=== PATIENT | female | born 1935 | race Caucasian/White ===

== ENCOUNTER 2017-11-27 12:36 | Emergency (ER) | payer OTHER ==
[~2017-11-27] VITALS: Ht 154.9 cm; Wt 60.3 kg
[2017-11-27] MEDS ORDERED: BLADDER CONTROL PO (13:03)
[2017-11-27 15:22] VITALS: BP 127/72
== END 2017-11-27 15:24 | disposition home or self-care (01) ==
LOC: M.ERS 12:36
DX: K59.00 Constipation, unspecified (principal)

== ENCOUNTER 2018-03-16 18:27 | Emergency (ER) | payer OTHER ==
[~2018-03-16] VITALS: Ht 154.9 cm; Wt 59.0 kg
[~2018-03-16 18:27] MED LIST: BLADDER CONTROL PO
[2018-03-16] MEDS ORDERED: CYMBALTA20 MG PO (18:36)
[2018-03-16] MEDS ORDERED: TRAMADOL 50 MG50 MG PO (19:35)
[2018-03-16 19:44] VITALS: BP 157/88
--- NOTE | 2018-03-17 12:48 | EKG ---
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
== END 2018-03-16 19:45 | disposition home or self-care (01) ==
LOC: M.ERS 18:27
DX: S51.011A Laceration without foreign body of right elbow, initial encounter (principal); S20.211A Contusion of right front wall of thorax, initial encounter; W01.0XXA Fall on same level from slipping, tripping and stumbling without subsequent striking against object, initial encounter; Y93.89 Activity, other specified; Y92.89 Other specified places as the place of occurrence of the external cause; Y99.8 Other external cause status

== ENCOUNTER 2018-11-28 14:24 | Emergency (ER) | payer OTHER ==
[~2018-11-28] VITALS: Ht 154.9 cm; Wt 63.5 kg
[~2018-11-28 14:24] MED LIST changes: +CYMBALTA20 MG PO; +TRAMADOL 50 MG50 MG PO
[2018-11-28] MEDS ORDERED: [UNRECOGNIZED DRUG - OTHER] (14:35)
[2018-11-28] MEDS ORDERED: [UNRECOGNIZED DRUG - OTHER] (14:35)
[2018-11-28] MEDS ORDERED: KEFLEX500 M1 PO (16:02)
[2018-11-28 16:29] VITALS: BP 115/68
== END 2018-11-28 16:31 | disposition home or self-care (01) ==
LOC: M.ERS 14:24
DX: S02.2XXA Fracture of nasal bones, initial encounter for closed fracture (principal); S01.81XA Laceration without foreign body of other part of head, initial encounter; W18.39XA Other fall on same level, initial encounter; Y92.481 Parking lot as the place of occurrence of the external cause; Y99.8 Other external cause status

== ENCOUNTER 2019-03-15 14:56 | Emergency (ER) | payer OTHER ==
[~2019-03-15] VITALS: Ht 154.9 cm; Wt 72.6 kg
[~2019-03-15 14:56] MED LIST changes: +KEFLEX500 M1 PO; +[UNRECOGNIZED DRUG - OTHER]; +[UNRECOGNIZED DRUG - OTHER]
[2019-03-15] MEDS ORDERED: MIRALAX17 GM PO (15:01)
[2019-03-15] MEDS ORDERED: TROSPIUM CHLORI60 MG PO (15:01)
[2019-03-15] MEDS ORDERED: FLOMAX0.4 MG PO (15:01)
[2019-03-15] MEDS ORDERED: SINEMET 25-1001 EAC1 PO (15:02)
[2019-03-15 15:11] LABS: ABSOLUTE BASOPHILS 0.1 thou/uL (0.0-0.2); ABSOLUTE EOSINOPHILS 0.1 thou/uL (0.0-0.7); ABSOLUTE LYMPHOCYTES 2.4 thou/uL (0.8-5.3); ABSOLUTE MONOCYTES 0.6 thou/uL (0.0-1.2); ABSOLUTE NEUTROPHILS 3.9 thou/uL (1.6-8.1); BASOPHILS 0.9 %; EOSINOPHILS 1.8 %; HEMATOCRIT 38.9 % (37.0-47.0); HEMOGLOBIN 13.3 gm/dL (12.0-15.0); LYMPHOCYTES 33.4 %; MCH 31.7 pg (26.0-34.0); MCHC 34.2 g/dL (28.0-37.0); MCV 92.5 fL (80.0-100.0); MONOCYTES 9.2 %; MPV 7.9 fl. (7.2-11.1); NUCLEATED RBCS 0 /100WBC; PLATELET COUNT* 298 thou/uL (150-400); POLYS 54.7 %; RBC 4.21 mil/uL (4.20-5.00); RDW-CV 13.6 % (10.5-14.5); WBC 7.1 thou/uL (4.0-11.0)
[2019-03-15 15:24] LABS: ANION GAP 7 mmol/L (7-16); BUN 19 mg/dL (7-18); CALCIUM 8.8 mg/dL (8.5-10.1); CHLORIDE 103 mmol/L (98-107); CO2 29 mmol/L (21-32); CREATININE 0.8 mg/dL (0.6-1.3); GLUCOSE 122 mg/dL (70-99); POTASSIUM 3.7 mmol/L (3.5-5.1); SODIUM 139 mmol/L (136-145)
[2019-03-15 15:26] LABS: APTT 28.2 Seconds (25.0-31.3); INR 1.1; PROTIME 10.8 Seconds (9.20-11.50)
[2019-03-15 15:37] LABS: ALBUMIN 3.4 g/dL (3.4-5.0); ALKALINE PHOSPHATASE 79 U/L (46-116); CK-MB MASS 5.3 ng/mL (<0.5-3.6); LIPASE 135 U/L (73-393); NT-PRO BRAIN NAT PEPTIDE 90 pg/mL (<300); SGOT 22 U/L (15-37); SGPT 9 U/L (30-65); TOTAL BILIRUBIN 0.4 mg/dL (<0.1-1.0); TOTAL PROTEIN 7.3 g/dL (6.4-8.2); TROPONIN-I LEVEL <0.06 ng/mL (<0.06)
[2019-03-15 18:39] VITALS: BP 131/79
--- NOTE | 2019-03-16 09:53 | EKG ---
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 : 1935 Requested By: Isaias Wagner Order Number: [id number] MD: Juan José Bills Measurements Intervals [place] Rate: 83 P: 40 OK: 154 QRS: -25 QRSD: 85 T: 32 QT: 374 QTc: 440 Interpretive Statements Sinus rhythm Borderline left axis deviation Compared to ECG 03/16/2018 18:33:14 No significant changes Electronically Signed On 03-16-2019 9:53:44 CDT by Juan José Bills [email or web address] <ELECTRONICALLY SIGNED> By: Rebeca Bills MD, [facility] 03/16/19 0953 1500 1500 Rebeca Bills MD, FACC /EPI
== END 2019-03-15 18:40 | disposition home or self-care (01) ==
LOC: M.ERS 14:56
PROVIDERS: Family Medicine
DX: R07.89 Other chest pain (principal); E78.00 Pure hypercholesterolemia, unspecified; G20 Parkinson's disease; M81.0 Age-related osteoporosis without current pathological fracture; Z98.41 Cataract extraction status, right eye; Z98.42 Cataract extraction status, left eye; Z85.828 Personal history of other malignant neoplasm of skin